=== PATIENT | female | born 1955 | race African-American/Black ===

== ENCOUNTER 2022-10-29 14:48 | Emergency (ER) | payer MEDICARE, MEDICAID ==
[~2022-10-29] VITALS: Ht 157.5 cm; Wt 82.0 kg
[2022-10-29] MEDS ORDERED: INSULIN REGULAR (HUMULIN R) 300UNITS/3ML VIAL IV ONE (16:45)
[2022-10-29] MEDS ORDERED: SODIUM CHLORIDE 0.9% 1,000 ML IV ONE (16:45)
[2022-10-29] MEDS ORDERED: ONDANSETRON HCL 4MG/2ML INJ IV ONE (16:45)
[2022-10-29] MEDS ORDERED: MECLIZINE 25MG TABLET PO ONE (17:00)
[2022-10-29] MEDS ORDERED: MECLIZINE 12.5MG TABLET PO NR (17:15)
[2022-10-29] MEDS ORDERED: INSULIN REGULAR (HUMULIN R) 300UNITS/3ML VIAL IV NR (20:30)
[2022-10-29] MEDS ORDERED: ONDANSETRON HCL 4MG/2ML INJ IV NR (20:30)
[2022-10-29 20:48] LABS: HEMATOCRIT. 35.4 % (36.0-48.0); HEMOGLOBIN. 11.9 g/dL (12.0-16.0); MEAN CORPUSCULAR VOLUME 83.4 fL (81.0-99.0); MEAN PLATELET VOLUME 8.3 fl (7.4-10.4); PLATELET 290 x1000/uL (130-400); RED BLOOD CELL COUNT 4.25 mill/uL (4.2-5.4); RED CELL DISTRIBUTION WIDTH 12.9 % (11.6-14.6)
[2022-10-29 20:53] LABS: CHLORIDE 107 mEq/L (98-107)
[2022-10-29 21:38] LABS: PLATELET ESTIMATE NORMAL
[2022-10-29] MEDS ORDERED: AMOXICILLIN/POTASSIUM CLAVULANATE 875/125MG TAB PO NR (23:35)
[2022-10-29] MEDS ORDERED: AMOX1TAB16 MT (23:44)
[2022-10-29] MEDS ORDERED: ONDA4TAB11 PO (23:44)
[2022-10-30 00:14] VITALS: BP 158/101
== END 2022-10-30 00:15 | disposition home or self-care (01) ==
LOC: ER 14:48
DX: E11.65 Type 2 diabetes mellitus with hyperglycemia (principal); E86.0 Dehydration; R79.89 Other specified abnormal findings of blood chemistry; I10 Essential (primary) hypertension; E78.00 Pure hypercholesterolemia, unspecified; Z86.73 Personal history of transient ischemic attack (TIA), and cerebral infarction without residual deficits
CPT/HCPCS: 36415; 80053; 82962; 85025; 96361; 96374; 99283; J2405; J7030; J8597

== ENCOUNTER 2025-07-16 13:47 | Inpatient (IN) | payer BC, MEDICAID ==
[2025-07-16] VITALS (7 sets, daily range): BP systolic 132–168; BP diastolic 58–72; PULSE 62–65; RESP 17–24; TEMP 36.5848–36.7; O2SAT 100
[~2025-07-16] VITALS: Ht 152.4 cm; Wt 89.4 kg
[~2025-07-16 13:47] MED LIST: CARV6.2548 PO; CLOP-31 PO; FURO-151 MT; FURO20TA4 PO; HYDR25TA78 PO; INSU100I13 SQ; LOSA100T33 MT; ONDA-239 PO; POTA-205 MT
[2025-07-16] MEDS: NITROGLYCERIN OINT 1GM/INCH UDPKT TD ONE (14:42)
[2025-07-16 14:52] LABS: BASOPHILS % 1.0 % (0.0-2.0); EOSINOPHILS % 1.8 % (0.0-5.0); HEMATOCRIT. 27.1 % (36.0-48.0); HEMOGLOBIN. 8.8 g/dL (12.0-16.0); LYMPHOCYTES % 9.1 % (20.0-50.0); MEAN PLATELET VOLUME 8.9 fl (7.4-10.4); MONOCYTES % 5.2 % (2.0-8.0); NEUTROPHILS % 82.9 % (40.0-76.0); PLATELET 366 x1000/uL (130-400); RED BLOOD CELL COUNT 3.19 mill/uL (4.2-5.4); RED CELL DISTRIBUTION WIDTH 15.2 % (11.6-14.6)
[2025-07-16] MEDS: FUROSEMIDE 40MG/4ML VIAL IVP SCH (14:56)
[2025-07-16 15:05] LABS: CREATININE 3.0 mg/dL (0.6-1.0); UREA NITROGEN BLOOD 45.0 mg/dL (9-23)
[2025-07-16 15:12] LABS: TROPONIN I HIGH SENSITIVITY 112 ng/L (3.0-34)
[2025-07-16] MEDS: METOPROLOL TARTRATE 25MG TABLET PO NR (15:50)
[2025-07-16] MEDS: METOPROLOL TARTRATE 5MG/5ML VIAL IV ONE (15:50)
[2025-07-16] MEDS: ASPIRIN 81MG EC TABLET PO NR (15:50)
[2025-07-16] MEDS: ENOXAPARIN 80MG/0.8ML SYR SUBCUT NR (15:51)
[2025-07-16] MEDS ORDERED: MAGNESIUM/ALUMINUM HYDROXIDE/SIMETHICONE 30ML UDC PO PRN (16:30)
[2025-07-16] MEDS ORDERED: ZOLPIDEM TARTRATE 5MG TABLET PO PRN (16:30)
[2025-07-16] MEDS: ENOXAPARIN 30MG/0.3ML SYR SUBCUT SCH (16:30)
[2025-07-16] MEDS ORDERED: DEXTROSE 50% WATER 50ML SYRINGE IV PRN (16:30)
[2025-07-16] MEDS ORDERED: ONDANSETRON HCL 4MG/2ML INJ IV PRN (16:30)
[2025-07-16] MEDS: BLOOD SUGAR DIAGNOSTIC STRIP TEST SCH (17:00)
[2025-07-16 17:15] LABS: TROPONIN I HIGH SENSITIVITY 406 ng/L (3.0-34)
[2025-07-16] MEDS: INSULIN LISPRO 100 UNITS/ML SUBCUT SCH (19:16)
[2025-07-16] MEDS: HYDRALAZINE HCL 25MG TABLET PO SCH (21:35)
[2025-07-16] MEDS: CARVEDILOL 6.25 MG TABLET PO SCH (21:35)
[2025-07-16] MEDS: ACETAMINOPHEN 325MG TABLET PO PRN (22:33)
[2025-07-17] VITALS (14 sets, daily range): BP systolic 146–202; BP diastolic 52–158; PULSE 48–60; RESP 13–26; TEMP 36.1–37.1; O2SAT 90–100
[2025-07-17 01:06] LABS: TROPONIN I HIGH SENSITIVITY 1079 ng/L (3.0-34)
[2025-07-17] MEDS: CLONIDINE 0.1MG TABLET PO PRN (02:29)
[2025-07-17] MEDS: ENOXAPARIN 80MG/0.8ML SYR SUBCUT SCH (02:30)
[2025-07-17 04:47] LABS: CLARITY URINE CLEAR (CLEAR); COLOR URINE YELLOW (YELLOW); GLUCOSE URINE NEGATIVE (NEGATIVE); KETONES URINE NEGATIVE (NEGATIVE); LEUKOCYTE ESTERASE URINE NEGATIVE (NEGATIVE); NITRITE URINE NEGATIVE (NEGATIVE); OCCULT BLOOD URINE NEGATIVE (NEGATIVE); PH URINE 7.0 (4.5-8.0); PROTEIN URINE 2+ (NEGATIVE); SPECIFIC GRAVITY URINE 1.013 (1.005-1.030); UROBILINOGEN URINE 0.2 E.U./dL (0.2-1.0)
[2025-07-17 05:09] LABS: *AMPHETAMINES SCREEN URINE NEGATIVE (NEGATIVE); *BARBITURATES SCREEN URINE NEGATIVE (NEGATIVE); *BENZODIAZEPINES SCREEN URINE NEGATIVE (NEGATIVE); *COCAINE SCREEN URINE NEGATIVE (NEGATIVE)
[2025-07-17 05:10] LABS: CANNABINOID URINE SCREEN NEGATIVE (NEGATIVE); ECSTASY MDMA SCREEN URINE NEGATIVE (NEGATIVE); METHADONE URINE SCREEN NEGATIVE (NEGATIVE); OPIATES URINE SCREEN NEGATIVE (NEGATIVE); PHENCYCLIDINE URINE SCREEN NEGATIVE (NEGATIVE)
[2025-07-17 06:24] LABS: INFLUENZA TYPE A Presumptive Negative (Pres. Neg.); INFLUENZA TYPE B Presumptive Negative (Pres. Neg.)
[2025-07-17 07:28] LABS: BASOPHILS % 0.6 % (0.0-2.0); EOSINOPHILS % 1.3 % (0.0-5.0); HEMATOCRIT. 24.6 % (36.0-48.0); HEMOGLOBIN. 8.1 g/dL (12.0-16.0); LYMPHOCYTES % 11.1 % (20.0-50.0); MEAN PLATELET VOLUME 8.5 fl (7.4-10.4); MONOCYTES % 7.5 % (2.0-8.0); NEUTROPHILS % 79.5 % (40.0-76.0); PLATELET 271 x1000/uL (130-400); RED BLOOD CELL COUNT 2.91 mill/uL (4.2-5.4); RED CELL DISTRIBUTION WIDTH 15.3 % (11.6-14.6)
[2025-07-17 07:35] LABS: CREATININE 2.8 mg/dL (0.6-1.0); UREA NITROGEN BLOOD 39.0 mg/dL (9-23)
[2025-07-17 07:52] LABS: RBC URINE NONE SEEN /hpf (0-2)
[2025-07-17 07:54] LABS: SQUAMOUS EPITHELIAL CELL URINE NONE SEEN /lpf (RARE/1+)
[2025-07-17 07:55] LABS: BACTERIA URINE NONE SEEN
[2025-07-17 08:13] LABS: TROPONIN I HIGH SENSITIVITY 1202 ng/L (3.0-34)
[2025-07-17] MEDS: FUROSEMIDE 40MG/4ML VIAL IVP SCH (09:25)
[2025-07-17] MEDS: PANTOPRAZOLE SODIUM 40 MG/VIAL IV SCH (09:29)
[2025-07-17] MEDS: CLOPIDOGREL 75MG TABLET PO SCH (09:31)
[2025-07-17] MEDS: ASPIRIN 81MG TABLET PO SCH (09:31)
[2025-07-17] MEDS: LOSARTAN 100 MG TABLET PO SCH (09:33)
[2025-07-17] MEDS: MORPHINE SULFATE 2 MG/ML INJ (NOT FOR IM USE) IV PRN (10:57)
[2025-07-17] MEDS: HYDRALAZINE 20MG/ML VIAL IV PRN (12:12)
[2025-07-17] MEDS ORDERED: NALOXONE HCL 0.4MG/ML VIAL IV PRN (12:15)
[2025-07-17] MEDS: HYDRALAZINE HCL 50MG TABLET PO SCH (13:21)
[2025-07-17] MEDS: ENOXAPARIN 100MG/ML SYR SUBCUT SCH (21:30)
[2025-07-18] VITALS (17 sets, daily range): BP systolic 127–178; BP diastolic 52–76; PULSE 46–63; RESP 11–18; TEMP 36.5–37.1; O2SAT 95–100
[2025-07-18 07:18] LABS: BASOPHILS % 0.6 % (0.0-2.0); EOSINOPHILS % 2.9 % (0.0-5.0); HEMATOCRIT. 24.2 % (36.0-48.0); HEMOGLOBIN. 8.0 g/dL (12.0-16.0); LYMPHOCYTES % 13.3 % (20.0-50.0); MEAN PLATELET VOLUME 8.8 fl (7.4-10.4); MONOCYTES % 7.8 % (2.0-8.0); NEUTROPHILS % 75.4 % (40.0-76.0); PLATELET 255 x1000/uL (130-400); RED BLOOD CELL COUNT 2.90 mill/uL (4.2-5.4); RED CELL DISTRIBUTION WIDTH 15.2 % (11.6-14.6)
[2025-07-18 07:24] LABS: CREATININE 2.7 mg/dL (0.6-1.0); UREA NITROGEN BLOOD 37.0 mg/dL (9-23)
[2025-07-18] MEDS: HYDROCODONE/ACETAMINOPHEN 5/325MG TABLET PO PRN (08:59)
[2025-07-18] MEDS ORDERED: SENNOSIDES/DOCUSATE SOD 8.6/50MG TABLET PO PRN (13:00)
[2025-07-18] MEDS: ISOSORBIDE MONONITRATE 30MG TABLET SR 24HR PO SCH (13:28)
[2025-07-18] MEDS: HYDRALAZINE HCL 100MG TABLET PO SCH ×2 (13:28→20:33)
[2025-07-18] MEDS: NIFEDIPINE XL 60MG TAB PO SCH (13:29)
[2025-07-18] MEDS ORDERED: SODIUM CHLORIDE 0.9% 500 ML IV NR (19:45)
[2025-07-19] VITALS (16 sets, daily range): BP systolic 97–149; BP diastolic 47–121; PULSE 46–76; RESP 7–21; TEMP 36.3–37.2; O2SAT 95–99
[2025-07-19 08:04] LABS: CREATININE 3.0 mg/dL (0.6-1.0)
[2025-07-19 08:05] LABS: UREA NITROGEN BLOOD 43.0 mg/dL (9-23)
[2025-07-19 08:10] LABS: BASOPHILS % 0.8 % (0.0-2.0); EOSINOPHILS % 2.9 % (0.0-5.0); HEMATOCRIT. 23.4 % (36.0-48.0); HEMOGLOBIN. 7.7 g/dL (12.0-16.0); LYMPHOCYTES % 11.0 % (20.0-50.0); MEAN PLATELET VOLUME 8.9 fl (7.4-10.4); MONOCYTES % 8.2 % (2.0-8.0); NEUTROPHILS % 77.1 % (40.0-76.0); PLATELET 256 x1000/uL (130-400); RED BLOOD CELL COUNT 2.78 mill/uL (4.2-5.4); RED CELL DISTRIBUTION WIDTH 15.1 % (11.6-14.6)
[2025-07-19] MEDS ORDERED: REGADENOSON 0.4 MG/5 ML IV ONE (11:15)
[2025-07-20] VITALS (11 sets, daily range): BP systolic 134–156; BP diastolic 55–67; PULSE 55–75; RESP 10–22; TEMP 36.7–37.3; O2SAT 90–100
[2025-07-20 07:11] LABS: BASOPHILS % 0.8 % (0.0-2.0); EOSINOPHILS % 2.9 % (0.0-5.0); HEMATOCRIT. 23.4 % (36.0-48.0); HEMOGLOBIN. 7.6 g/dL (12.0-16.0); LYMPHOCYTES % 16.7 % (20.0-50.0); MEAN PLATELET VOLUME 8.7 fl (7.4-10.4); MONOCYTES % 9.3 % (2.0-8.0); NEUTROPHILS % 70.3 % (40.0-76.0); PLATELET 271 x1000/uL (130-400); RED BLOOD CELL COUNT 2.80 mill/uL (4.2-5.4); RED CELL DISTRIBUTION WIDTH 14.8 % (11.6-14.6)
[2025-07-20 07:24] LABS: CREATININE 3.0 mg/dL (0.6-1.0); UREA NITROGEN BLOOD 54.0 mg/dL (9-23)
[2025-07-20] MEDS ORDERED: REGADENOSON 0.4 MG/5 ML IV ONE (07:59)
[2025-07-20 08:15] LABS: TROPONIN I HIGH SENSITIVITY 411 ng/L (3.0-34)
[2025-07-20] MEDS ORDERED: CLOP-31 PO (10:42)
[2025-07-20] MEDS ORDERED: ISOS30TA91 PO (10:42)
[2025-07-20] MEDS ORDERED: EMPA10TA MT (10:42)
[2025-07-20] MEDS ORDERED: NIFE-32 PO (10:42)
[2025-07-20] MEDS ORDERED: ASPI-1160 PO (10:42)
[2025-07-20 13:06] LABS: BG BASE EXCESS 0.0 mmol/L (-2.0-3.0); BG CARBOXYHEMOGLOBIN 0.8 % (0.5-1.5); BG DEOXYHEMOGLOBIN 10.5 % (0.0-5.0); BG FRACTION INSPIRED OXYGEN 21; BG HCO3 ACT 23.9 mmol/L (21.0-28.0); BG METHEMOGLOBIN 0.3 % (0.5-1.5); BG OXYGEN SATURATION 89.4 % (94.0-98.0); BG OXYHEMOGLOBIN 88.4 % (94.0-98.0); BG PCO2 35.7 mmHg (32.0-45.0); BG PH 7.444 (7.350-7.450); BG PO2 56.2 mmHg (83.0-108.0); BG SAMPLE SITE LEFT RADIAL; BG TOTAL HEMOGLOBIN 9.0 g/dL (12.0-16.0); BG VENT MODE ROOM AIR
[2025-07-20] MEDS: NITROGLYCERIN OINT 1GM/INCH UDPKT TD SCH (16:48)
[2025-07-21] VITALS (12 sets, daily range): BP systolic 137–162; BP diastolic 46–72; PULSE 54–65; RESP 10–17; TEMP 36.6–37.1; O2SAT 92–99
[2025-07-21 07:04] LABS: BASOPHILS % 0.9 % (0.0-2.0); EOSINOPHILS % 3.2 % (0.0-5.0); HEMATOCRIT. 24.3 % (36.0-48.0); HEMOGLOBIN. 8.1 g/dL (12.0-16.0); LYMPHOCYTES % 17.6 % (20.0-50.0); MEAN PLATELET VOLUME 8.7 fl (7.4-10.4); MONOCYTES % 9.4 % (2.0-8.0); NEUTROPHILS % 68.9 % (40.0-76.0); PLATELET 269 x1000/uL (130-400); RED BLOOD CELL COUNT 2.91 mill/uL (4.2-5.4); RED CELL DISTRIBUTION WIDTH 15.2 % (11.6-14.6)
[2025-07-21 07:22] LABS: CREATININE 3.0 mg/dL (0.6-1.0)
[2025-07-21 07:24] LABS: UREA NITROGEN BLOOD 44.0 mg/dL (9-23)
[2025-07-21 10:52] LABS: TROPONIN I HIGH SENSITIVITY 4409 ng/L (3.0-34)
[2025-07-21] MEDS: HYDRALAZINE HCL 25MG TABLET PO SCH (15:42)
[2025-07-22] VITALS: BP 119/49; PULSE 60; RESP 14; TEMP 36.7; O2SAT 95
[2025-07-22 02:00] VITALS: BP 138/53; PULSE 58; RESP 14; O2SAT 95
[2025-07-22 04:00] VITALS: BP 134/57; PULSE 60; RESP 10; TEMP 36.6; O2SAT 98
[2025-07-22 06:00] VITALS: BP 154/64; PULSE 63; RESP 17; O2SAT 96
[2025-07-22 06:12] LABS: BASOPHILS % 1.0 % (0.0-2.0); EOSINOPHILS % 3.5 % (0.0-5.0); HEMATOCRIT. 24.1 % (36.0-48.0); HEMOGLOBIN. 7.9 g/dL (12.0-16.0); LYMPHOCYTES % 16.4 % (20.0-50.0); MEAN PLATELET VOLUME 8.8 fl (7.4-10.4); MONOCYTES % 8.3 % (2.0-8.0); NEUTROPHILS % 70.8 % (40.0-76.0); PLATELET 281 x1000/uL (130-400); RED BLOOD CELL COUNT 2.86 mill/uL (4.2-5.4); RED CELL DISTRIBUTION WIDTH 15.0 % (11.6-14.6)
[2025-07-22 06:32] LABS: CREATININE 3.0 mg/dL (0.6-1.0); UREA NITROGEN BLOOD 54.0 mg/dL (9-23)
[2025-07-22 06:45] LABS: TROPONIN I HIGH SENSITIVITY 1970 ng/L (3.0-34)
[2025-07-22 09:54] VITALS: PULSE 67
[2025-07-22] MEDS: HYDRALAZINE HCL 25MG TABLET PO SCH (15:23)
[2025-07-22] MEDS ORDERED: NIFEDIPINE XL 60MG TAB PO SCH (21:00)
[2025-07-22] MEDS ORDERED: CARVEDILOL 12.5MG TABLET PO SCH (21:00)
[2025-07-23] MEDS ORDERED: FUROSEMIDE 40MG TABLET PO SCH (09:00)
== END 2025-07-22 17:58 | disposition home health service (06) | DRG 280 ==
LOC: ER 14:13 → EDBEDREQ 16:01 → EDBEDREQSVC 16:31 → 5EST 17:55
PROVIDERS: ADMIT Internal Medicine; ATTEND Internal Medicine
PROC: 5A09357 Assistance with Respiratory Ventilation, Less than 24 Consecutive Hours, Continuous Positive Airway Pressure (ICD-10-PCS; principal; 2025-07-16)
DX: I13.0 Hypertensive heart and chronic kidney disease with heart failure and stage 1 through stage 4 chronic kidney disease, or unspecified chronic kidney disease (principal); I50.23 Acute on chronic systolic (congestive) heart failure; I21.4 Non-ST elevation (NSTEMI) myocardial infarction; J96.21 Acute and chronic respiratory failure with hypoxia; D64.9 Anemia, unspecified; E11.22 Type 2 diabetes mellitus with diabetic chronic kidney disease; I42.9 Cardiomyopathy, unspecified; N17.9 Acute kidney failure, unspecified; N18.9 Chronic kidney disease, unspecified; Z20.822 Contact with and (suspected) exposure to COVID-19; E11.65 Type 2 diabetes mellitus with hyperglycemia; E83.42 Hypomagnesemia; Z79.4 Long term (current) use of insulin; Z79.82 Long term (current) use of aspirin; Z79.899 Other long term (current) drug therapy; Z91.041 Radiographic dye allergy status
CPT/HCPCS: 36415; 36600; 71045; 76770; 78452; 80048; 80305; 81003; 82375; 82550; 82805; 82962; 83880; 84443; 84484; 85025; 87426; 87804; 93005; 93017; 93306; 93970; 94070; 94640; 94660; 94664; 97162; 98960; 99291; A4606; A4615; A9500; J0360; J1650; J1815; J1938; J2270; J2470; J2785; J3490